=== PATIENT | female | born 1970 | race Caucasian/White ===

== ENCOUNTER 2018-02-13 10:22 | Day surgery (SDC) | payer OTHER ==
[~2018-02-13] VITALS: Ht 175.3 cm; Wt 93.0 kg
[2018-02-13 10:43] VITALS: BP 113/81
[2018-02-13 15:55] VITALS: BP 115/81
== END 2018-02-13 14:35 | disposition home or self-care (01) ==
LOC: DS 10:22 → OR 12:30 → DS 12:30
PROVIDERS: Obstetrics & Gynecology
PROC: 0UDB7ZZ Extraction of Endometrium, Via Natural or Artificial Opening (ICD-10-PCS; principal; 2018-02-13 12:30)
DX: N92.0 Excessive and frequent menstruation with regular cycle (principal); K21.9 Gastro-esophageal reflux disease without esophagitis
CPT/HCPCS: J0690; J2405; J2704; J3010; J3490; J7120